=== PATIENT | female | born 1960 | race Caucasian/White ===

== ENCOUNTER 2020-12-21 09:00 | Day surgery (SDC) | payer OTHER ==
[2020-12-21] MEDS ORDERED: Ringers Lactate 1,000 ML IV ONE ×4 (09:48→15:56)
[2020-12-21] MEDS ORDERED: SCOPOLAMINE HYDROBROMIDE PATCH TD ONE (09:48)
[2020-12-21] MEDS ORDERED: NS 0.9% VIAL 30 ML ONE (09:51)
[2020-12-21] MEDS ORDERED: GENTAMICIN SULF 80 MG/2ML INJ ONE ×2 (09:52→12:56)
[2020-12-21] MEDS ORDERED: Mastisol Adhesive Liq ONE ×2 (09:52→17:29)
[2020-12-21] MEDS ORDERED: LIDOCAINE 1% W/EPI 1:100,000 MDV 20 ML VIAL ONE (09:52)
[2020-12-21] MEDS ORDERED: CEFAZOLIN SODIUM 1 GM/VIAL ONE (09:52)
[2020-12-21] MEDS ORDERED: CEFAZOLIN/SWI 1gm 0 GM/0 ML SYR ONE (10:04)
[2020-12-21 10:10] LABS: Absolute Lymphocytes (CBC) 1.7 K/uL (0.7-4.9); Basophils % 0.4 % (0-1.3); Hematocrit 35.2 % (36.0-45.0); Lymphocytes % 34.2 % (15.3-44.8); MPV 9.8 fL (7.6-11.3); RBC Red Blood Cell Count 3.97 M/uL (3.86-4.86)
[2020-12-21] MEDS ORDERED: MIDAZOLAM HCL 2 MG/2 ML INJ ONE (10:11)
[2020-12-21] MEDS ORDERED: ROCURONIUM 50 MG/5 ML VIAL IV ONE ×2 (10:12→12:08)
[2020-12-21] MEDS ORDERED: FENTANYL CITR 250 MCG/5 ML ONE (10:12)
[2020-12-21] MEDS ORDERED: propofoL 200 MG/20 ML VIAL IV ONE (10:12)
[2020-12-21 10:22] LABS: BUN Blood Urea Nitrogen 10 mg/dL (7-18); Bicarbonate 19 mmol/L (21-32); Glucose Level 76 mg/dL (74-106); Potassium 3.8 mmol/L (3.5-5.1); Sodium Level 141 mmol/L (136-145)
[2020-12-21] MEDS ORDERED: CLINDAMYCIN INJ 300 MG in NA CHLORIDE 0.9% 50 ML IV ONE (10:30)
[2020-12-21] MEDS ORDERED: dexAMETHasone 10 MG/ML VIAL ONE (10:52)
[2020-12-21] MEDS ORDERED: ONDANSETRON 4 MG/2 ML VIAL ONE ×2 (10:53→18:25)
[2020-12-21] MEDS ORDERED: KETAMINE HCL 500 MG/5 ML VIAL ONE (11:40)
[2020-12-21] MEDS ORDERED: FENTANYL CITR 100 MCG/2 ML ONE ×2 (13:38→15:50)
--- NOTE | 2020-12-21 14:38 | EKG ---
Test Date: 2020-12-21 Test Time: 09:09:05 Body Former: [facility] MEASUREMENT RESULTS: Intervals: Rate: 68 ID: [id number] QRSD: 88 QT: 386 QTc: 410 [place]: P: 23 ID: [id number] QRS: 47 T: 25 INTERPRETIVE STATEMENTS: Normal sinus rhythm Cannot rule out Anterior infarct, age undetermined Abnormal ECG No previous ECG available for comparison Electronically Signed On 12-21-20 14:38:21 CDT by Artis Zamora
[2020-12-21] MEDS ORDERED: KETOROLAC 30 MG/ML INJ ONE (17:29)
[2020-12-21] MEDS: HYDROMORPHONE HCL 1 MG/ML INJ ONE ×2 (18:20→18:25)
[2020-12-21] MEDS ORDERED: MEPERIDINE HCL 25 MG/ML SYR ONE (18:25)
[2020-12-21] MEDS ORDERED: CODEINE 30MG/APAP 300MG TAB ONE (19:33)
[2020-12-21 19:54] VITALS: BP 112/90; TEMP 98
[2020-12-21 20:07] VITALS: O2SAT 100
--- NOTE | 2020-12-21 23:03 | OP ---
Surgeon: Jorge Gomez MD Preoperative Diagnosis: Breast descent and excess skin. Postoperative Diagnosis: Breast descent and excess skin. Procedure: Brachioplasty, breast lift. Anesthesia: General. Procedure In Detail: After satisfactory induction of general anesthesia, chest was prepped with DuraPrep, dry sterile drapes were applied in usual manner. A 5 cm template was used to outline the right and left areola. Then the skin was incised in a transverse and curvilinear partial-thickness and intervening skin was de-epithelialized with dermabrader and tenotomy scissors. Transverse incision was made on the right breast. Dissection was proceeded down toward the sternum, clavicle, anterior axillary line. The flap was thinned to approximately 1.5 cm and then inferior incision was made. The deepithilzied tissue was formed in a cone after excess tissue was removed laterally. Conization was performed with 2-0 PDS suture. Straps were elevated at 12 o'clock, 1:30 and 3 o'clock position at the right breast, and then the straps were then woven in and out of the pectoralis major muscle back to the base of the cone, back to pectoralis muscle, back to base of cone, tied themselves with 2-0 PDS sutures. This was done for 12 o'clock and 1:30. The 3 o'clock strap was sewn over the sternum at 3 o'clock position with 2-0 Ethibond. Mirror image was performed on the opposite side. The wound was temporally stapled shut. Patient was sat up and then the dog ears were marked out laterally and then the dog ears were excised with a scalpel and electrocautery. Wound was irrigated with antibiotic solution. 10 TOMMY was brought out of the axilla, sewn in place with 2-0 silk, and then the wounds were closed with 3-0 Vicryl subcutaneous, then 3-0 PDS running subcuticular from medial to lateral, lateral to medial, tied in the vertical meridian of the breast. The patient was then sat up. Site for new nipple-areolar complex was marked out. With 5 cm template, tissue was cored out. Nipple areolar complex was sewn with interrupted 4-0 PDS, followed by 4-0 PDS running subcuticular. Dressings consisted of tincture of benzoin, Steri-Strips. Then prepped circumferentially, stockinette was applied, dry sterile drapes in usual manner. Right arm was approached first. A longitudinal incision was made at the elbow to the axilla, then transversely posteriorly and then the flap was elevated posteriorly and then incisions were made appropriate length to excise the excess skin. The flap was advanced from [id number] and then medial. The flap was cut off and then closed in layers. A 10 TOMMY was brought out of the axilla, sewn with 2-0 silk. The wound was closed 3-0 Vicryl, then 4-0 PDS in running subcuticular. Dressings consisted of tincture of benzoin, Steri-Strips. Opposite side was done in identical manner. Dressings consisted of tincture of benzoin, Steri-Strips, Kerlix, followed by Esmarch, fluffs, and Godfrey wrap on the breast. The patient tolerated procedure well. The amount of breast tissue removed from right breast was 142, left breast 476, right arm 222 g, left arm 228 g. TIERA/RONAK Voice ID: [id number] Report ID: [id number] MTDD
== END 2020-12-21 19:50 | disposition home or self-care (01) ==
LOC: OR 09:00
PROVIDERS: ATTEND Specialist
PROC: 0HSV0ZZ Reposition Bilateral Breast, Open Approach (ICD-10-PCS; 2020-12-21)
PROC: 0J0F0ZZ Alteration of Left Upper Arm Subcutaneous Tissue and Fascia, Open Approach (ICD-10-PCS; principal; 2020-12-21 09:30)
PROC: 0J0D0ZZ Alteration of Right Upper Arm Subcutaneous Tissue and Fascia, Open Approach (ICD-10-PCS; 2020-12-21 09:30)
DX: N64.81 Ptosis of breast (principal); L98.7 Excessive and redundant skin and subcutaneous tissue
CPT/HCPCS: 93005; 85025; 80048; 36415; 88300; 88305; 15836; 19316; J2704; J1580; J2250; J3010 ×3; J1100; J2175; J1170; J7120 ×4; J2405 ×2; J0690